=== PATIENT | male | born 1965 | race Caucasian/White ===

== ENCOUNTER → 2016-09-18 | Outpatient (CLI) | payer OTHER ==
[~2016-09-18] MED LIST: ALBUAER19 INH; DARU600T2 PO; EMTR1TAB10 PO; LORA5TAB3 PO; MELO7.5T6 PO; MULTTAB5 PO; RTN100 PO; TRV PO; [UNRECOGNIZED DRUG - CODE] PO
[2016-09-22 00:15] LABS: CHLAMYDIA TRACH RNA*** NOT DETECTED (NOT DETECTED); GC (NEIS GONORRHOEAE)RNA** NOT DETECTED (NOT DETECTED); MUMPS IgG VALUE 2.47
== END | disposition home or self-care (01) ==
LOC: C.LAB1850 09:50
PROVIDERS: ATTEND Internal Medicine Infectious Disease
DX: B20 Human immunodeficiency virus [HIV] disease (principal)

== ENCOUNTER → 2016-10-02 | Outpatient (CLI) | payer OTHER ==
[2016-10-02 12:15] LABS: BASO % 0.4 %; BASO ABS # 0.02 K/uL (0-0.2); COMPLETE YES; EOS % 1.5 %; HEMATOCRIT 41.7 % (42-52); IG% 0.2 %; LYMPH % 36.6 %; MEAN CELL VOLUME 94.3 fL (80-100); MEAN CORPUSCULAR HEMOGLOBIN 32.8 pg (25-34); MEAN CORPUSCULAR HGB CONC 34.8 g/dl (32-36); MEAN PLATELET VOLUME 8.5 fL (7.4-10.4); MONO % 9.2 %; NEUT % 52.1 %; PLATELET COUNT 300 K/uL (130-400); RED BLOOD COUNT 4.42 M/uL (4.7-6.1); WHITE BLOOD COUNT 5.46 K/uL (4.8-10.8)
[2016-10-02 13:11] LABS: ALT/SGPT 32 U/L (12-78); AST/SGOT 20 U/L (15-37); CALCIUM 8.5 mg/dl (8.5-10.1)
[2016-10-02 13:12] LABS: ALB/GLOB RATIO 1.4 (0.9-2); ALKALINE PHOSPHATASE 77 U/L (45-117); BLOOD UREA NITROGEN 16 mg/dl (7-18); BUN/CREATININE RATIO 14.1 (10-20); CARBON DIOXIDE 25 mmol/L (21-32); CHLORIDE 106 mmol/L (98-107); CHOLESTEROL 200 mg/dl (0-200); CHOLESTEROL/HDL RATIO 4.7; GLUCOSE 100 mg/dl (70-99); HDL CHOLESTEROL 43 mg/dl; SODIUM 141 mmol/L (136-145); TRIGLYCERIDES 618 mg/dl (0-150)
--- NOTE | 2016-10-09 13:36 | CODING QUERY MEDICAL NECESSITY ---
CQSUPPORTING DIAGNOSIS NEEDED A supporting diagnosis is required for the test/procedure performed on this patient in order for us to be reimbursed by the patient's insurance. Please provide a supporting diagnosis for the following test/procedure listed below next to the test name along with your signature. *If there is no additional diagnosis for this patient that would support the following test/procedure please document that below next to the test/procedure. Test(s)/Procedure(s) that require a supporting diagnosis: DOS 10/02/16 SCREENING FOR SEXUALLY TRANSMITTED DISEASE HIV INFECTION, SYMPTOMATIC EXPOSURE TO SEXUALLY TRANSMITTED DISEASE Provider Signature: Date: Thank you Starr Ya Health Information Management Once completed, please kindly fax back to [phone] For questions please call [phone]
== END | disposition home or self-care (01) ==
LOC: C.LAB1850 10:19
PROVIDERS: ATTEND Internal Medicine Infectious Disease
DX: Z20.2 Contact with and (suspected) exposure to infections with a predominantly sexual mode of transmission (principal); B20 Human immunodeficiency virus [HIV] disease

== ENCOUNTER → 2016-10-28 | Day surgery (SDC) | payer BC, OTHER ==
[2016-10-15 08:58] VITALS: Ht 177.8 cm; Wt 72.7 kg
[~2016-10-28] VITALS: Ht 177.8 cm; Wt 72.7 kg
[~2016-10-28] MED LIST changes: +LIDOCAINE HCL 2% 2 ML VIAL (20MG/ML) ONE; +MIDAZOLAM HCL 1 MG/ML 2ML VIAL ONE; +ONDANSETRON INJ 2 MG/ML 2 ML VIAL ONE; +PROPOFOL IV EMULSION 10 MG/ML 20 ML VIAL IV ONE; +SODIUM CHLORIDE 0.9% 500ML 500 ML IV ONE
--- NOTE | 2016-10-28 11:16 | Endo History and Physical ---
History & Physical Date of Service: Oct 28, 2016. Chief Complaint: screening Referring Physician: Dr. Mix History of Present Illness 51 yo CM who presents for screening colonoscopy. Past Surgical History Hx Cardiac Surgery: No Hx Internal Defibrillator: No Hx Pacemaker: No Hx Abdominal Surgery: No Hx of Implantable Prosthesis: No Hx Post-Op Nausea and Vomiting: No Hx Cancer Surgery: No Hx Thoracic Surgery: No Hx Orthopedic: No Hx Urinary Tract Surgery: No Family History None Social History Smoking Status: Never Smoker Hx Substance Use: No Hx Alcohol Use: Yes (OCCASIONAL) Allergies Coded Allergies: Abacavir (Verified Allergy, Unknown, HIVES, TROUBLE BREATHING , 10/28/16) Cephalosporins (Verified Allergy, Unknown, HIVES, 10/15/16) Ofloxacin (Verified Allergy, Unknown, HIVES , 10/28/16) Current Medications Reported Home Medications Medications Dose Route/Sig Max Daily Dose Days Date Category Claritin-D 12 Hour (Loratadine & Pseudoephedrine) 1 Tab Tab 1 Tab PO BID PRN 10/15/16 Reported Descovy 200-25 mg (Emtricitabine-Tenofovir Alafen) 1 Tab Tab 1 Tab PO QAM 10/15/16 Reported Centrum (Multiple Vitamins W/ Minerals) 1 Tab Tab 1 Tab PO QAM 01/24/16 Reported Ventolin Inhaler (Albuterol) Aers 2 Puffs INH QID PRN 01/24/16 Reported Mobic (Meloxicam) 7.5 Mg Tab 7.5 Mg PO BID 01/24/16 Reported Truvada 200-300 mg (Emtricitabine/Temofovir) 1 Tab Tab 200-300 Mg PO QAM 11/19/15 Reported Norvir (Ritonavir) 100 Mg Cap 100 Mg PO Q12 11/19/15 Reported Prezista (Darunavir Ethanolate) 600 Mg Tab 600 Mg PO BID 11/19/15 Reported Selzentry (Maraviroc) 150 Mg Tab 150 Mg PO BID 11/19/15 Reported Vital Signs Weight (Kilograms): 72.73 Height (Feet): 5 Height (Inches): 10 Date Time Temp Pulse Resp B/P Pulse Ox O2 Delivery O2 Flow Rate FiO2 10/28/16 10:07 36.6 52 16 110/66 98 Room Air Physical Exam General Appearance: WD/WN, no apparent distress Respiratory/Chest: Auscultation: breath sounds normal Cardiovascular: Heart Auscultation: RRR Abdomen: Bowel Sounds: normal Inspection & Palpation: soft, non-distended, no tenderness, guarding & rebound Assessment and Plan Assessment: 51 yo CM who presents for screening colonoscopy. Plan: Proceed with colonoscopy.
--- NOTE | 2016-10-28 11:48 | Discharge Instructions ---
Endoscopy Patient Instructions Date / Procedure(s) Performed Oct 28, 2016. Colonoscopy Allergy Information Coded Allergies: Abacavir (Verified Allergy, Unknown, HIVES, TROUBLE BREATHING , 10/28/16) Cephalosporins (Verified Allergy, Unknown, HIVES, 10/15/16) Ofloxacin (Verified Allergy, Unknown, HIVES , 10/28/16) Discharge Date / Findings Oct 28, 2016. Internal hemorrhoids Medication Instructions Stopped Medication(s): All meds stopped 10/27/2016. OK to resume all medications today as prescribed Reported Home Medications Medications Dose Route/Sig Max Daily Dose Days Date Category Claritin-D 12 Hour (Loratadine & Pseudoephedrine) 1 Tab Tab 1 Tab PO BID PRN 10/15/16 Reported Descovy 200-25 mg (Emtricitabine-Tenofovir Alafen) 1 Tab Tab 1 Tab PO QAM 10/15/16 Reported Centrum (Multiple Vitamins W/ Minerals) 1 Tab Tab 1 Tab PO QAM 01/24/16 Reported Ventolin Inhaler (Albuterol) Aers 2 Puffs INH QID PRN 01/24/16 Reported Mobic (Meloxicam) 7.5 Mg Tab 7.5 Mg PO BID 01/24/16 Reported Truvada 200-300 mg (Emtricitabine/Temofovir) 1 Tab Tab 200-300 Mg PO QAM 11/19/15 Reported Norvir (Ritonavir) 100 Mg Cap 100 Mg PO Q12 11/19/15 Reported Prezista (Darunavir Ethanolate) 600 Mg Tab 600 Mg PO BID 11/19/15 Reported Selzentry (Maraviroc) 150 Mg Tab 150 Mg PO BID 11/19/15 Reported Provider Instructions Activity Restrictions - No exercising or heavy lifting for 24 hours. - Do not drink alcohol the day of the procedure. - Do not drive a car or operate machinery until the day after the procedure. - Do not make any important decisions or sign important papers in 24 hours after the procedure. Following Day: - Return to full activity which may include returning to work/school. Diet Start your diet with liquids and light foods (jello, soup, juice, toast). Then eat your usual diet if not nauseated. Treatment For Common After Affects For mild abdominal pain, bloating, or excessive gas: - Rest - Eat lightly - Lie on right side Follow-Up Information Follow-up with Dr. Mix as scheduled Anesthesia Information What You Should Know You have had a procedure that required some medicine to reduce anxiety and discomfort. This treatment is called moderate sedation. After receiving the treatment, you may be sleepy, but you will be able to breathe on your own. The effects of the treatment may last for several hours. Follow these instructions along with Activity/Diet recommendations noted above: * Do NOT do anything where dizziness or clumsiness would be dangerous. * Rest quietly at home today, then you can be up and about tomorrow. * Have a responsible person stay with you the rest of today. * You may have had an I.V. today. If so, you may take the dressing off later today. Recommendations Call your doctor if: * Trouble breathing * Continuous vomiting for more than 24 hours * Temperature above 101 degrees * Severe abdominal pain or bloating * Pain not relieved by pain medicine ordered * There is increased drainage or redness from any incision * A large amount of rectal bleeding greater than 2-3 tablespoons. (If you had a polyp/s removed or have hemorrhoids, a small amount of blood - from the rectum is to be expected.) * You have any unanswered questions or concerns. IN THE EVENT OF A SERIOUS EMERGENCY, GO TO THE NEAREST EMERGENCY ROOM Your discharge instructions were prepared by provider Silvestre Johnson. Patient Instructions Signature Page Raoul Redman Patient (or Guardian) Signature/Date: I have read and understand the instructions given to me by my caregivers. Caregiver/RN/Doctor Signature/Date: The above-named patient and/or guardian has received patient instructions on this date. + Original Patient Signature Page (only) stays with chart. Please make copy for patient.
--- NOTE | 2016-10-28 11:58 | GI REPORT ---
Procedure Date: 10/28/2016 10:51 AM Procedure: Colonoscopy Indications: Screening for colorectal malignant neoplasm Medicines: Monitored Anesthesia Care Complications: No immediate complications. Estimated Blood Loss: Estimated blood loss: none. Procedure: Pre-Anesthesia Assessment: - Prior to the procedure, a History and Physical was performed, and patient medications and allergies were reviewed. The patient's tolerance of previous anesthesia was also reviewed. The risks and benefits of the procedure and the sedation options and risks were discussed with the patient. All questions were answered, and informed consent was obtained. Prior Anticoagulants: The patient has taken no previous anticoagulant or antiplatelet agents. ASA Grade Assessment: III - A patient with severe systemic disease. After reviewing the risks and benefits, the patient was deemed in satisfactory condition to undergo the procedure. After I obtained informed consent, the scope was passed under direct vision. Throughout the procedure, the patient's blood pressure, pulse, and oxygen saturations were monitored continuously. The scope was introduced through the anus and advanced to the cecum, identified by appendiceal orifice and ileocecal valve. The colonoscopy was performed without difficulty. The patient tolerated the procedure well. The quality of the bowel preparation was good. The ileocecal valve, appendiceal orifice, and rectum were photographed. Findings: Non-bleeding internal hemorrhoids were found during retroflexion. The hemorrhoids were small. The exam was otherwise without abnormality. Impression: - Non-bleeding internal hemorrhoids. - The examination was otherwise normal. - No specimens collected. Recommendation: - Resume previous diet. - Resume previous diet. - Repeat colonoscopy in 10 years for surveillance. - Return to primary care physician as previously scheduled. Silvestre Johnson DO 10/28/2016 11:58:29 AM This report has been signed electronically. Note Initiated On: 10/28/2016 10:51 AM I attest to the content of the Intraoperative Record and orders documented therein, exceptions below
--- NOTE | 2016-10-28 12:05 | Anesthesiology Progress Note ---
Anesthesia Post Op Note Date & Time Oct 28, 2016 at 12:05 Vital Signs Pain Intensity: 0 Vital Signs Past 12 Hours Date Time Temp Pulse Resp B/P Pulse Ox O2 Delivery O2 Flow Rate FiO2 10/28/16 11:59 78 16 137/78 98 Room Air 10/28/16 11:44 91 16 117/71 96 Room Air 10/28/16 10:07 36.6 52 16 110/66 98 Room Air Notes Mental Status: alert / awake / arousable, participated in evaluation Pt Amnestic to Procedure: Yes Nausea / Vomiting: adequately controlled Pain: adequately controlled Airway Patency, RR, SpO2: stable & adequate BP & HR: stable & adequate Hydration State: stable & adequate Anesthetic Complications: no major complications apparent Pt doing well.
[2016-10-28 12:15] VITALS: BP 114/76; PULSE 73; O2SAT 98
== END | disposition home or self-care (01) ==
LOC: C.GI 09:40
PROVIDERS: ATTEND Internal Medicine
DX: Z12.11 Encounter for screening for malignant neoplasm of colon (principal); K64.8 Other hemorrhoids

== ENCOUNTER → 2016-11-09 | Outpatient (CLI) | payer OTHER ==
[~2016-11-09] MED LIST changes: -LIDOCAINE HCL 2% 2 ML VIAL (20MG/ML) ONE; -MIDAZOLAM HCL 1 MG/ML 2ML VIAL ONE; -ONDANSETRON INJ 2 MG/ML 2 ML VIAL ONE; -PROPOFOL IV EMULSION 10 MG/ML 20 ML VIAL IV ONE; -SODIUM CHLORIDE 0.9% 500ML 500 ML IV ONE
[2016-11-10 20:57] LABS: CHLAMYDIA TRACH RNA*** NOT DETECTED (NOT DETECTED); GC (NEIS GONORRHOEAE)RNA** NOT DETECTED (NOT DETECTED)
[2016-11-11 12:33] LABS: HEPATITIS BE ANTIGEN TC 555 Nonreactive; HSV TYPE 1 DNA Not Detected (Not Detected); HSV TYPE 1&2 DNA SOURCE Plasma; HSV TYPE 2 DNA Not Detected (Not Detected); LSP % CELLS ANALYZED CD4 25 % (30-61); LSP ABSOLUTE CT CD4 417 cells/uL (490-1740); LSP LYMPHOCYTES ABSOLUTE 1658 cells/uL (850-3900)
--- NOTE | 2016-11-24 10:33 | CODING QUERY MEDICAL NECESSITY ---
CQSUPPORTING DIAGNOSIS NEEDED A supporting diagnosis is required for the test/procedure performed on this patient in order for us to be reimbursed by the patient's insurance. Please provide a supporting diagnosis for the following test/procedure listed below next to the test name along with your signature. *If there is no additional diagnosis for this patient that would support the following test/procedure please document that below next to the test/procedure. Test(s)/Procedure(s) that require a supporting diagnosis: DOS 11/09/16 SCREENING FOR SEXUALLY TRANSMITTED STIs-HERPES CIMPLEX, CHLAMYDIA, GC RNA Provider Signature: Date: Thank you Starr Ya Health Information Management Once completed, please kindly fax back to [phone] For questions please call [phone]
== END | disposition home or self-care (01) ==
LOC: C.LAB1850 10:15
PROVIDERS: ATTEND Internal Medicine
DX: B20 Human immunodeficiency virus [HIV] disease (principal); Z20.2 Contact with and (suspected) exposure to infections with a predominantly sexual mode of transmission

== ENCOUNTER → 2017-01-20 | Outpatient (CLI) | payer OTHER ==
[2017-01-20 12:41] LABS: BASO % 0.2 %; BASO ABS # 0.01 K/uL (0-0.2); COMPLETE YES; EOS % 1.1 %; HEMATOCRIT 47.4 % (42-52); IG% 0.2 %; LYMPH % 34.1 %; LYMPH ABS # 2.09 K/uL (1.2-3.4); MEAN CELL VOLUME 94.2 fL (80-100); MEAN PLATELET VOLUME 8.5 fL (7.4-10.4); MONO % 7.7 %; NEUT % 56.7 %; PLATELET COUNT 276 K/uL (130-400); RED BLOOD COUNT 5.03 M/uL (4.7-6.1); WHITE BLOOD COUNT 6.13 K/uL (4.8-10.8)
[2017-01-20 12:53] LABS: ALT/SGPT 30 U/L (12-78); BLOOD UREA NITROGEN 14 mg/dl (7-18); BUN/CREATININE RATIO 11.6 (10-20); CALCIUM 9.2 mg/dl (8.5-10.1); CARBON DIOXIDE 27 mmol/L (21-32); CHLORIDE 103 mmol/L (98-107); CHOLESTEROL 239 mg/dl (0-200); GLUCOSE 91 mg/dl (70-99); POTASSIUM 3.7 mmol/L (3.5-5.1); SODIUM 139 mmol/L (136-145); TRIGLYCERIDES 426 mg/dl (0-150)
[2017-01-20 12:57] LABS: ALB/GLOB RATIO 1.3 (0.9-2); ALKALINE PHOSPHATASE 74 U/L (45-117); AST/SGOT 15 U/L (15-37); CHOLESTEROL/HDL RATIO 4.6; HDL CHOLESTEROL 52 mg/dl
[2017-01-23 16:32] LABS: LSP % CELLS ANALYZED CD4 23 % (30-61); LSP ABSOLUTE CT CD4 464 cells/uL (490-1740); LSP LYMPHOCYTES ABSOLUTE 2054 cells/uL (850-3900)
== END | disposition home or self-care (01) ==
LOC: C.LAB1850 10:09
PROVIDERS: ATTEND Internal Medicine Infectious Disease
DX: B20 Human immunodeficiency virus [HIV] disease (principal)

== ENCOUNTER → 2017-03-19 | Outpatient (CLI) | payer OTHER ==
--- NOTE | 2017-03-31 10:19 | CODING QUERY MEDICAL NECESSITY ---
CQSUPPORTING DIAGNOSIS NEEDED A supporting diagnosis is required for the test/procedure performed on this patient in order for us to be reimbursed by the patient's insurance. Please provide a supporting diagnosis for the following test/procedure listed below next to the test name along with your signature. *If there is no additional diagnosis for this patient that would support the following test/procedure please document that below next to the test/procedure. Test(s)/Procedure(s) that require a supporting diagnosis: DOS 03/19/17 PROSTATE SPECIFIC (PSA) TEST Provider Signature: Date: Thank you Starr Ya Health Information Management Once completed, please kindly fax back to [phone] For questions please call [phone]
== END | disposition home or self-care (01) ==
LOC: C.LAB1850 13:36
PROVIDERS: ATTEND Urology
DX: N50.819 Testicular pain, unspecified (principal)

== ENCOUNTER → 2017-04-29 | Outpatient (CLI) | payer OTHER ==
[2017-04-29 12:52] LABS: BASO % 0.4 %; BASO ABS # 0.02 K/uL (0-0.2); COMPLETE YES; EOS % 1.8 %; IG% 0.2 %; LYMPH % 34.3 %; LYMPH ABS # 1.92 K/uL (1.2-3.4); MEAN CELL VOLUME 93.5 fL (80-100); MEAN CORPUSCULAR HGB CONC 35.3 g/dl (32-36); MEAN PLATELET VOLUME 8.4 fL (7.4-10.4); MONO % 11.1 %; NEUT % 52.2 %; PLATELET COUNT 266 K/uL (130-400); WHITE BLOOD COUNT 5.59 K/uL (4.8-10.8)
[2017-04-29 13:46] LABS: AST/SGOT 20 U/L (15-37); BLOOD UREA NITROGEN 13 mg/dl (7-18); BUN/CREATININE RATIO 10.5 (10-20); CARBON DIOXIDE 27 mmol/L (21-32); CHLORIDE 103 mmol/L (98-107); CHOLESTEROL 233 mg/dl (0-200); GLUCOSE 88 mg/dl (70-99); POTASSIUM 4.2 mmol/L (3.5-5.1); SODIUM 136 mmol/L (136-145); TRIGLYCERIDES 504 mg/dl (0-150)
[2017-04-29 13:49] LABS: ALB/GLOB RATIO 1.5 (0.9-2); ALKALINE PHOSPHATASE 70 U/L (45-117); ALT/SGPT 26 U/L (12-78); CHOLESTEROL/HDL RATIO 5.1; HDL CHOLESTEROL 46 mg/dl
[2017-05-01 18:34] LABS: LSP % CELLS ANALYZED CD4 26 % (30-61); LSP ABSOLUTE CT CD4 564 cells/uL (490-1740); LSP LYMPHOCYTES ABSOLUTE 2156 cells/uL (850-3900)
== END | disposition home or self-care (01) ==
LOC: C.LAB1850 10:18
PROVIDERS: ATTEND Internal Medicine Infectious Disease
DX: B20 Human immunodeficiency virus [HIV] disease (principal)

== ENCOUNTER → 2017-06-23 | Outpatient (CLI) | payer OTHER ==
[2017-06-26 02:25] LABS: CHLAMYDIA TRACH RNA*** NOT DETECTED (NOT DETECTED); GC (NEIS GONORRHOEAE)RNA** NOT DETECTED (NOT DETECTED)
[2017-06-27 01:35] LABS: HSV1 AB IGM Negative (Negative); HSV2 AB IGM Negative (Negative)
== END | disposition home or self-care (01) ==
LOC: C.LAB1850 11:29
PROVIDERS: ATTEND Internal Medicine Infectious Disease
DX: B20 Human immunodeficiency virus [HIV] disease (principal); Z20.2 Contact with and (suspected) exposure to infections with a predominantly sexual mode of transmission

== ENCOUNTER → 2017-08-04 | Outpatient (CLI) | payer OTHER ==
[2017-08-04 12:12] LABS: BASO % 0.2 %; BASO ABS # 0.01 K/uL (0-0.2); EOS % 1.3 %; EOS ABS # 0.07 K/uL (0-0.5); HEMATOCRIT 40.9 % (42-52); HEMOGLOBIN 14.6 g/dL (14.0-18.0); IG# 0.01 K/uL (0.00-0.02); LYMPH % 34.7 %; MEAN CELL VOLUME 92.7 fL (80-100); MEAN CORPUSCULAR HEMOGLOBIN 33.1 pg (25-34); MEAN CORPUSCULAR HGB CONC 35.7 g/dl (32-36); MEAN PLATELET VOLUME 8.7 fL (7.4-10.4); MONO % 10.2 %; MONO ABS # 0.56 K/uL (0.11-0.59); NEUT % 53.4 %; NEUT ABS # 2.92 K/uL (1.4-6.5); PLATELET COUNT 284 K/uL (130-400); RED CELL DISTRIBUTION WIDTH CV 12.8 % (11.5-14.5); RED CELL DISTRIBUTION WIDTH SD 43.7 fL (36.4-46.3); WHITE BLOOD COUNT 5.47 K/uL (4.8-10.8)
[2017-08-04 12:36] LABS: ALBUMIN 3.8 gm/dl (3.4-5.0); ALT/SGPT 26 U/L (12-78); AST/SGOT 15 U/L (15-37); BLOOD UREA NITROGEN 13 mg/dl (7-18); CALCIUM 8.8 mg/dl (8.5-10.1); CARBON DIOXIDE 30 mmol/L (21-32); CREATININE 0.99 mg/dl (0.60-1.40); GLUCOSE 87 mg/dl (70-99); POTASSIUM 3.9 mmol/L (3.5-5.1); SODIUM 136 mmol/L (136-145)
[2017-08-04 12:38] LABS: ALKALINE PHOSPHATASE 84 U/L (45-117); TOTAL PROTEIN 6.6 gm/dl (6.4-8.2)
== END | disposition home or self-care (01) ==
LOC: C.LAB1850 10:08
PROVIDERS: ATTEND Internal Medicine Infectious Disease
DX: B20 Human immunodeficiency virus [HIV] disease (principal)

== ENCOUNTER → 2017-09-06 | Outpatient (CLI) | payer OTHER ==
[2017-09-06 12:07] LABS: BASO % 0.1 %; BASO ABS # 0.01 K/uL (0-0.2); EOS % 1.7 %; EOS ABS # 0.12 K/uL (0-0.5); HEMATOCRIT 42.5 % (42-52); IG# 0.01 K/uL (0.00-0.02); LYMPH % 27.8 %; LYMPH ABS # 1.93 K/uL (1.2-3.4); MEAN CELL VOLUME 92.8 fL (80-100); MEAN CORPUSCULAR HEMOGLOBIN 32.8 pg (25-34); MEAN CORPUSCULAR HGB CONC 35.3 g/dl (32-36); MEAN PLATELET VOLUME 8.6 fL (7.4-10.4); MONO % 9.8 %; MONO ABS # 0.68 K/uL (0.11-0.59); NEUT % 60.5 %; PLATELET COUNT 267 K/uL (130-400); RED CELL DISTRIBUTION WIDTH SD 43.9 fL (36.4-46.3); WHITE BLOOD COUNT 6.95 K/uL (4.8-10.8)
[2017-09-06 12:54] LABS: ALBUMIN 4.2 gm/dl (3.4-5.0); ALKALINE PHOSPHATASE 83 U/L (45-117); ALT/SGPT 43 U/L (12-78); AST/SGOT 23 U/L (15-37); BLOOD UREA NITROGEN 14 mg/dl (7-18); CARBON DIOXIDE 25 mmol/L (21-32); CREATININE 1.14 mg/dl (0.60-1.40); GLUCOSE 110 mg/dl (70-99); POTASSIUM 3.8 mmol/L (3.5-5.1); SODIUM 137 mmol/L (136-145); TOTAL PROTEIN 7.2 gm/dl (6.4-8.2)
== END | disposition home or self-care (01) ==
LOC: C.LAB1850 10:42
PROVIDERS: ATTEND Internal Medicine Infectious Disease
DX: B35.1 Tinea unguium (principal)

== ENCOUNTER → 2017-09-08 | Outpatient (CLI) | payer OTHER | END | disposition home or self-care (01) | LOC: C.LAB1850 13:44 | PROVIDERS: ATTEND Internal Medicine Infectious Disease | DX: Z20.2 Contact with and (suspected) exposure to infections with a predominantly sexual mode of transmission (principal) ==

== ENCOUNTER → 2017-11-15 | Outpatient (CLI) | payer OTHER ==
[2017-11-15 12:26] LABS: BASO % 0.3 %; BASO ABS # 0.02 K/uL (0-0.2); EOS % 1.6 %; EOS ABS # 0.12 K/uL (0-0.5); HEMATOCRIT 48.5 % (42-52); HEMOGLOBIN 17.1 g/dL (14.0-18.0); IG# 0.01 K/uL (0.00-0.02); LYMPH % 34.4 %; LYMPH ABS # 2.55 K/uL (1.2-3.4); MEAN CELL VOLUME 92.4 fL (80-100); MEAN CORPUSCULAR HEMOGLOBIN 32.6 pg (25-34); MEAN CORPUSCULAR HGB CONC 35.3 g/dl (32-36); MEAN PLATELET VOLUME 8.5 fL (7.4-10.4); MONO % 8.8 %; MONO ABS # 0.65 K/uL (0.11-0.59); NEUT % 54.8 %; NEUT ABS # 4.06 K/uL (1.4-6.5); PLATELET COUNT 307 K/uL (130-400); RED CELL DISTRIBUTION WIDTH CV 13.2 % (11.5-14.5); RED CELL DISTRIBUTION WIDTH SD 44.5 fL (36.4-46.3); WHITE BLOOD COUNT 7.41 K/uL (4.8-10.8)
[2017-11-15 12:52] LABS: ALBUMIN 4.1 gm/dl (3.4-5.0); ALT/SGPT 31 U/L (12-78); AST/SGOT 16 U/L (15-37); BLOOD UREA NITROGEN 14 mg/dl (7-18); CALCIUM 9.2 mg/dl (8.5-10.1); CARBON DIOXIDE 32 mmol/L (21-32); CREATININE 1.14 mg/dl (0.60-1.40); GLUCOSE 96 mg/dl (70-99); POTASSIUM 4.2 mmol/L (3.5-5.1); SODIUM 137 mmol/L (136-145)
[2017-11-15 12:55] LABS: ALKALINE PHOSPHATASE 87 U/L (45-117); TOTAL PROTEIN 7.3 gm/dl (6.4-8.2)
[2017-11-18 15:26] LABS: LSP % CELLS ANALYZED CD4 23 % (30-61); LSP ABSOLUTE CT CD4 639 cells/uL (490-1740)
== END | disposition home or self-care (01) ==
LOC: C.LAB1850 09:51
PROVIDERS: ATTEND Internal Medicine Infectious Disease
DX: B35.1 Tinea unguium (principal); B20 Human immunodeficiency virus [HIV] disease